=== PATIENT | female | born 1990 | race Caucasian/White ===

== ENCOUNTER 2016-10-10 00:41 | Emergency (ER) | payer SELFPAY ==
[~2016-10-10] VITALS: Ht 162.6 cm; Wt 50.0 kg
[2016-10-10 00:43] VITALS: BP 129/67; PULSE 92; RESP 16; TEMP 98.9; O2SAT 97
[2016-10-10 02:08] VITALS: BP 93/54; PULSE 77; RESP 18; O2SAT 98
[2016-10-10] MEDS ORDERED: KETOROLAC TROMETHAMINE 30 MG/ML (IVP) VIAL IV PUSH ONE (02:30)
[2016-10-10] MEDS ORDERED: SODIUM CHLORIDE 0.9% FLUSH 10 ML FLUSH IVF PRN (02:30)
--- NOTE | 2016-10-10 02:34 | PD ---
HPI Chief Complaint: Respiratory Symptoms Time Seen by Provider: 02:17 Travel History International Travel<30 days: No Contact w/Intl Traveler<30days: No Traveled to known affect area: No History of Present Illness HPI This is a 26-year-old female who has a history of congenital transposition of the great vessels, who presents today with complaint of pleuritic chest pain 3 days. Patient denies any fevers, chills. She does report cough with no productive phlegm. She denies any chest pressure. She says it's sharp and hurts when she takes a deep breath. The patient also has a history of anxiety disorder. She states that this is been making her feel much more anxious than normal. She denies any control use. She states that she has not been sexually active for 3 years. She denies any history of previous blood clots. She stop smoking 1-1/2 months ago. There is no long car rides or plane rides. She has no history of previous trauma to her lower extremities. [facility] Past Medical History ADD: Yes Bipolar Disorder: Yes Cardiovascular Problems: Yes (BACKWARDS HEART AT ) Tetanus Vaccination: Unknown Influenza Vaccination: Yes ?: Not LMP: 08/08/16 : 1 Miscarriage: 1 Past Surgical History Cardiac Surgery: Yes (OPEN HEART AT 10 DAYS) Social History Alcohol Use: No Tobacco Use: Yes (VAPORIZER) Substance Use: No Allergies-Medications (Allergen,Severity, Reaction): Coded Allergies: No Known Allergies (Unverified , 10/10/16) Reported Meds & Prescriptions Reported Meds & Active Scripts Active Zofran (Ondansetron HCl) 4 Mg Tab 4 Mg PO Q8HR PRN Vistaril (Hydroxyzine Pamoate) 25 Mg Cap 25 Mg PO TID PRN Review of Systems Except as stated in HPI: all other systems reviewed are Neg General / Constitutional: No: Fever, Chills HENT: No: Headaches, Lightheadedness Cardiovascular: Positive: Chest Pain or Discomfort, No: Palpitations, Irregular Rhythm Respiratory: Positive: Cough (nonproductive), No: Shortness of Breath Gastrointestinal: No: Nausea, Vomiting, Abdominal Pain Genitourinary: No: Dysuria, Incontinence Musculoskeletal: No: Weakness, Pain Neurologic: No: Weakness, Headache Psychiatric: Positive: Anxiety, No: Depression Physical Exam Narrative GENERAL: Well-developed well-nourished female in no acute respiratory distress. The patient does report feeling anxious. SKIN: Focused skin assessment warm/dry. HEAD: Atraumatic. Normocephalic. EYES: No scleral icterus. No injection or drainage. ENT: No nasal bleeding or discharge. Mucous membranes pink and moist. NECK: Trachea midline. No JVD. Supple. CARDIOVASCULAR: Regular rate and rhythm. No murmur appreciated. RESPIRATORY: No accessory muscle use. Clear to auscultation. Breath sounds equal bilaterally. GASTROINTESTINAL: Abdomen soft, non-tender, nondistended. MUSCULOSKELETAL: No obvious deformities. No clubbing. No cyanosis. No edema. NEUROLOGICAL: Awake and alert. No obvious cranial nerve deficits. Motor grossly within normal limits. Normal speech. PSYCHIATRIC: Appropriate mood and affect; insight and judgment normal. Patient does appear slightly anxious. Data Data Last Documented VS Vital Signs Date Time Temp Pulse Resp B/P Pulse Ox O2 Delivery O2 Flow Rate FiO2 10/10/16 04:07 63 17 97/53 98 Room Air 10/10/16 00:43 98.9 Orders Complete Blood Count With Diff (10/10/16 02:17) Comprehensive Metabolic Panel (10/10/16 02:17) D-Dimer (10/10/16 02:17) Ckmb (Isoenzyme) Profile (10/10/16 02:17) Troponin I (10/10/16 02:17) Iv Access Insert/Monitor (10/10/16 02:17) Ecg Monitoring (10/10/16 02:17) Oximetry (10/10/16 02:17) Oxygen Administration (10/10/16 02:17) Chest, Single Ap (10/10/16 02:17) Sodium Chloride 0.9% Flush (Ns Flush) (10/10/16 02:30) Ketorolac Inj (Toradol Inj) (10/10/16 02:30) CKMB (10/10/16 02:30) CKMB% (10/10/16 02:30) Ondansetron Inj (Zofran Inj) (10/10/16 04:00) Lorazepam Inj (Ativan Inj) (10/10/16 04:00) Labs Laboratory Tests Test 10/10/16 02:30 White Blood Count 6.4 TH/MM3 Red Blood Count 4.32 MIL/MM3 Hemoglobin 11.8 GM/DL Hematocrit 34.4 % Mean Corpuscular Volume 79.7 FL Mean Corpuscular Hemoglobin 27.3 PG Mean Corpuscular Hemoglobin 34.3 % Concent Red Cell Distribution Width 14.8 % Platelet Count 171 TH/MM3 Mean Platelet Volume 8.7 FL Neutrophils (%) (Auto) 60.3 % Lymphocytes (%) (Auto) 28.2 % Monocytes (%) (Auto) 8.2 % Eosinophils (%) (Auto) 2.7 % Basophils (%) (Auto) 0.6 % Neutrophils # (Auto) 3.9 TH/MM3 Lymphocytes # (Auto) 1.8 TH/MM3 Monocytes # (Auto) 0.5 TH/MM3 Eosinophils # (Auto) 0.2 TH/MM3 Basophils # (Auto) 0.0 TH/MM3 CBC Comment DIFF FINAL Differential Comment D-Dimer Quantitative (PE/DVT) 0.40 MG/L FEU Sodium Level 139 MEQ/L Potassium Level 3.6 MEQ/L Chloride Level 101 MEQ/L Carbon Dioxide Level 30.3 MEQ/L Anion Gap 8 MEQ/L Blood Urea Nitrogen 13 MG/DL Creatinine 0.81 MG/DL Estimat Glomerular Filtration 85 ML/MIN Rate Random Glucose 103 MG/DL Calcium Level 8.6 MG/DL Total Bilirubin 0.3 MG/DL Aspartate Amino Transf 28 U/L (AST/SGOT) Alanine Aminotransferase 23 U/L (ALT/SGPT) Alkaline Phosphatase 76 U/L Total Creatine Kinase 173 U/L Creatine Kinase MB 2.2 NG/ML Troponin I LESS THAN 0.02 NG/ML Total Protein 6.7 GM/DL Albumin 3.6 GM/DL [facility] Medical Decision Making Medical Screen Exam Complete: Yes Emergency Medical Condition: Yes Differential Diagnosis ACS versus pulmonary embolus versus pleurisy Narrative Course 26-year-old female presents today with pleuritic chest pain. The patient also has a history of anxiety and feels anxious. This EKG and cardiac enzymes are within normal limits. D-dimer is negative. Chest x-ray shows no acute findings. The patient went to the restroom and and vomited. She states she feels anxious. She is given Ativan 1 mg I V times one dose. She is also given Zofran 4 mg. I discussed the findings on the laboratory tests EKG and x-ray. I informed her that this could possibly be pleurisy. She'll be instructed to take anti-inflammatories. She has been given a prescription for Vistaril and Zofran. She is encouraged to follow up with her therapist for anxiety. Diagnosis Primary Impression: Atypical chest pain Additional Impression: Anxiety Scripts Ondansetron (Zofran)4 Mg Tab4 Mg PO Q8HR PRN (NAUSEA OR VOMITING) #20 TAB Ref 0 Prov:Parag Chavez MD 10/10/16 Hydroxyzine Pamoate (Vistaril)25 Mg Cap25 Mg PO TID PRN (ANXIETY) #20 CAP Ref 0 Prov:Parag Chavez MD 10/10/16 Parag Chavez MD October 10, 2016 02:34
--- NOTE | 2016-10-10 02:57 | RADRPT ---
EXAM DATE/TIME: 10/10/2016 02:40 [place] COMPARISON: No previous studies available for comparison. INDICATIONS : Sternal chest pain. MEDICAL HISTORY : None. 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 ENCOUNTER: Initial ACUITY: 1 day PAIN SCORE: 8/10 LOCATION: chest FINDINGS: A single view of the chest demonstrates the lungs to be symmetrically aerated without evidence of mas s, infiltrate or effusion. The cardiomediastinal contours are unremarkable. There is evidence of pre vious thoracic surgery. Osseous structures are intact. CONCLUSION: Normal examination for a patient of this age. Jacinto Patino MD on October 10, 2016 at 2:56 Board Certified Radiologist. This report was verified electronically.
[2016-10-10 03:01] LABS: AUTOMATED NEUTROPHIL # 3.9 TH/MM3 (1.8-7.7); BASOPHIL % 0.6 % (0.0-2.0); EOSINOPHIL # 0.2 TH/MM3 (0-0.4); EOSINOPHIL % 2.7 % (0.0-4.0); HEMATOCRIT 34.4 % (35.0-46.0); HEMO FLAGS DIFF FINAL; LYMPH % 28.2 % (9.0-44.0); LYMPHOCYTE # 1.8 TH/MM3 (1.0-4.8); MEAN CELL VOLUME 79.7 FL (80.0-100.0); MEAN CORPUSCULAR HEMOGLOBIN 27.3 PG (27.0-34.0); MEAN CORPUSCULAR HGB CONC 34.3 % (32.0-36.0); MONO % 8.2 % (0.0-8.0); NEUT % 60.3 % (16.0-70.0); PLATELET COUNT 171 TH/MM3 (150-450); RED BLOOD COUNT 4.32 MIL/MM3 (4.00-5.30); RED CELL DISTRIBUTION WIDTH 14.8 % (11.6-17.2); WHITE BLOOD COUNT 6.4 TH/MM3 (4.0-11.0)
[2016-10-10 03:27] LABS: ALT (GPT) 23 U/L (10-53); ANION GAP 8 MEQ/L (5-15); AST (GOT) 28 U/L (15-37); BICARBONATE 30.3 MEQ/L (21.0-32.0); BLOOD UREA NITROGEN 13 MG/DL (7-18); CHLORIDE 101 MEQ/L (98-107); GLOMERULAR FILTRATION RATE 85 ML/MIN (>89); POTASSIUM 3.6 MEQ/L (3.5-5.1); SODIUM (NA) 139 MEQ/L (136-145)
[2016-10-10 03:31] LABS: ALKALINE PHOSPHATASE 76 U/L (45-117); CREATINE KINASE 173 U/L (26-192); TOTAL BILIRUBIN ADULT 0.3 MG/DL (0.2-1.0)
[2016-10-10 03:43] LABS: CKMB 2.2 NG/ML (0.5-3.6)
[2016-10-10] MEDS ORDERED: LORazepam 2 MG/ML VIAL IV PUSH ONE (04:00)
[2016-10-10] MEDS ORDERED: ONDANSETRON HCL 4 MG/2 ML VIAL IV PUSH ONE (04:00)
[2016-10-10 04:07] VITALS: BP 97/53; PULSE 63; RESP 17; O2SAT 98
[2016-10-10] MEDS ORDERED: VIST25CA PO (04:12)
[2016-10-10] MEDS ORDERED: ZOFR4TAB PO (04:12)
[2016-10-10 06:51] VITALS: BP 97/55; PULSE 74; RESP 14; O2SAT 97
[2016-10-10 08:00] VITALS: BP 99/57; PULSE 77; RESP 16; O2SAT 99
--- NOTE | 2016-10-10 08:17 | EKG ---
Date Performed: 10/10/2016 Time Performed: 02:27:19 PTAGE: 26 years EKG: Sinus rhythm WITH SINUS ARRHYTHMIA NONSPECIFIC T-WAVE ABNORMALITY BORDERLINE ECG NO PREVIOUS TRACING DOCTOR: Ronald Pride Interpretating Date/Time 10/10/2016 08:15:15
[2016-10-10 09:56] VITALS: BP 101/60
== END 2016-10-10 09:57 | disposition home or self-care (01) ==
LOC: NEPE 00:41
DX: R07.89 Other chest pain (principal); F41.9 Anxiety disorder, unspecified; F31.9 Bipolar disorder, unspecified
CPT/HCPCS: 71010; 80053; 82550; 82552; 84484; 85025; 85379; 93005; 96374; 96375; 99284; J1885; J2060; J2405

== ENCOUNTER 2017-06-07 19:34 | Emergency (ER) | payer SELFPAY ==
[~2017-06-07] VITALS: Ht 162.6 cm; Wt 50.0 kg
[~2017-06-07 19:34] MED LIST: VIST25CA PO; ZOFR4TAB PO
[2017-06-07 19:36] VITALS: BP 117/60; PULSE 90; RESP 16; TEMP 99.5; O2SAT 98
--- NOTE | 2017-06-07 19:55 | PD ---
HPI Chief Complaint: Cold / Flu Symptoms Time Seen by Provider: 19:47 Travel History International Travel<30 days: No Contact w/Intl Traveler<30days: No Traveled to known affect area: No History of Present Illness HPI 26-year-old female presents emergency department for evaluation of sore throat, fever, near pain worsening over last 2 days. Patient states that it has become very difficult to swallow due to the pain. She has taken an ibuprofen yesterday but nothing today. She has also taken TheraFlu with no relief of her symptoms. She denies abdominal pain, nausea, vomiting. Mild cough and chest congestion that started today. She has no other symptoms to report. [facility] Past Medical History ADD: Yes Bipolar Disorder: Yes Cardiovascular Problems: Yes (BACKWARDS HEART AT ) Diminished Hearing: No ?: Not LMP: currently : 1 Miscarriage: 1 Past Surgical History Cardiac Surgery: Yes (OPEN HEART AT 10 DAYS) Social History Alcohol Use: No Tobacco Use: Yes (VAPORIZER) Substance Use: No Allergies-Medications (Allergen,Severity, Reaction): Coded Allergies: No Known Allergies (Unverified Adverse Reaction, Unknown, 06/07/17) Reported Meds & Prescriptions Reported Meds & Active Scripts Active No Active Prescriptions or Reported Medications Review of Systems Except as stated in HPI: all other systems reviewed are Neg Physical Exam Narrative GENERAL: Well-nourished, well-developed female patient in no acute distress SKIN: Focused skin assessment warm/dry. HEAD: Normocephalic. Atraumatic EARS: Bilateral pinnae and external canals appear within normal limits. Bilateral tympanic membranes without erythema, dullness or perforation. EYES: No scleral icterus. No injection or drainage. ENT: Mucosa pink and moist. Pharynx with erythema without exudate. No uvular edema. No uvular, palatal, or tonsillar deviation. Airway patent. Nasal turbinates appear normal without nasal blood, purulent drainage or septal hematoma. NECK: Supple, trachea midline. Mild anterior cervical lymphadenopathy. CARDIOVASCULAR: Regular rate and rhythm without murmurs, gallops, or rubs. RESPIRATORY: Breath sounds equal bilaterally. No accessory muscle use. GASTROINTESTINAL: Abdomen soft, non-tender, nondistended. MUSCULOSKELETAL: No cyanosis, or edema. BACK: Nontender without obvious deformity. No CVA tenderness. Data Data Last Documented VS Vital Signs Date Time Temp Pulse Resp B/P (MAP) Pulse Ox O2 Delivery O2 Flow Rate FiO2 06/07/17 20:54 06/07/17 19:36 99.5 90 16 98 Nasal Cannula Orders Orders Influenzae A/B Antigen (06/07/17 19:54) Group A Rapid Strep Screen (06/07/17 19:54) Dexamethasone Inj (Decadron Inj) (06/07/17 20:00) Strep Culture (Group A) (06/07/17 20:10) Ed Discharge Order (06/07/17 20:52) MDM Medical Decision Making Medical Screen Exam Complete: Yes Emergency Medical Condition: Yes Medical Record Reviewed: Yes Differential Diagnosis Pharyngitis strep versus viral versus tonsillitis versus, goal versus allergies versus influenza Narrative Course 26-year-old female presents to emergency department for evaluation. Patient appears without distress. Oropharynx is erythematous. Rapid strep screen is negative. Influenza is negative as well. Patient is given Decadron IM. She is counseled on care and encouraged to follow-up with primary care provider. She agrees to return immediately with any acute worsening symptoms. Diagnosis Primary Impression: Pharyngitis Qualified Codes: J02.9 - Acute pharyngitis, unspecified Additional Impression: URI (upper respiratory infection) Qualified Codes: J06.9 - Acute upper respiratory infection, unspecified Referrals: Primary Care Physician Patient Instructions: General Instructions, Pharyngitis (ED) Additional Instructions: Warm salt water gargles may help to alleviate symptoms Follow-up with primary care provider Tylenol or ibuprofen as directed on package as needed for fever and/or pain Avoid abrasive and acidic foods Return immediately to the emergency department with any acute worsening symptoms Med/Other Pt SpecificInfo: No Change to Meds Scripts No Active Prescriptions or Reported Meds Disposition: 01 DISCHARGE HOME Condition: Stable Aniyah Hassan Jun 07, 2017 19:55
[2017-06-07] MEDS ORDERED: DEXAMETHASONE SOD PHOS 4 MG/ML VIAL IM ONE (20:00)
== END 2017-06-07 21:08 | disposition home or self-care (01) ==
LOC: NEPD 19:34
DX: J06.9 Acute upper respiratory infection, unspecified (principal); F98.8 Other specified behavioral and emotional disorders with onset usually occurring in childhood and adolescence; F31.9 Bipolar disorder, unspecified; Z72.0 Tobacco use
CPT/HCPCS: 87081; 87804; 87880; 96372; 99284; J1100

== ENCOUNTER 2017-08-09 18:00 | Emergency (ER) | payer BC ==
[~2017-08-09] VITALS: Ht 162.6 cm; Wt 49.5 kg
[2017-08-09 18:07] VITALS: BP 97/52; PULSE 108; RESP 18; TEMP 99.1; O2SAT 98
[2017-08-09] MEDS ORDERED: SODIUM CHLOR 0.9% 1000 ML INJ 1,000 ML IV SCH (18:25)
--- NOTE | 2017-08-09 18:28 | PD ---
HPI Chief Complaint: Cold / Flu Symptoms Time Seen by Provider: 18:20 Travel History International Travel<30 days: No Contact w/Intl Traveler<30days: No Traveled to known affect area: No History of Present Illness HPI 27-year-old female here for evaluation of nausea, vomiting, diarrhea, nasal congestion. Patient believes she may have the flu. Emesis and bowel movements are nonbloody. She has occasional abdominal cramping. No sore throat. No cough. States that she has been unable to keep any fluids down and feels dehydrated. Denies urinary symptoms. PFSH Past Medical History ADD: Yes Bipolar Disorder: Yes Cardiovascular Problems: Yes (CONGENITAL) Diminished Hearing: No ?: Not LMP: LAST WEEK : 1 Miscarriage: 1 Past Surgical History Cardiac Surgery: Yes (OPEN HEART AT 10 DAYS) Social History Alcohol Use: No Tobacco Use: Yes (VAPORIZER) Substance Use: No (HX OF IV DRUGS) Allergies-Medications (Allergen,Severity, Reaction): Coded Allergies: No Known Allergies (Unverified Adverse Reaction, Unknown, 08/09/17) Reported Meds & Prescriptions Reported Meds & Active Scripts Active No Active Prescriptions or Reported Medications Review of Systems Except as stated in HPI: all other systems reviewed are Neg Physical Exam Narrative GENERAL: Well-developed, well-nourished, no apparent distress. SKIN: Focused skin assessment warm/dry. No rash. HEAD: Atraumatic. Normocephalic. EYES: Pupils equal and round. No scleral icterus. No injection or drainage. ENT: No nasal bleeding or discharge. Mucous membranes pink and dry. Normal pharynx. Bilateral tympanic membranes and external auditory canals are normal. NECK: Trachea midline. No JVD. No nuchal rigidity. CARDIOVASCULAR: Slightly tachycardic, rate 105. RESPIRATORY: No accessory muscle use. Clear to auscultation. Breath sounds equal bilaterally. GASTROINTESTINAL: Abdomen soft, non-tender, nondistended. MUSCULOSKELETAL: No obvious deformities. No clubbing. No cyanosis. No edema. NEUROLOGICAL: Awake and alert. No obvious cranial nerve deficits. Motor grossly within normal limits. Normal speech. PSYCHIATRIC: Appropriate mood and affect; insight and judgment normal. Data Data Last Documented VS Vital Signs Date Time Temp Pulse Resp B/P (MAP) Pulse Ox O2 Delivery O2 Flow Rate FiO2 08/09/17 19:49 98.7 65 16 91/49 (63) 99 Room Air Orders Orders Beta Hcg (Quant/Titer) (08/09/17 18:) Complete Blood Count With Diff (08/09/17:) Comprehensive Metabolic Panel (08/09/17) Lipase (08/09/17:) Prothrombin Time / Inr (Pt) (08/09/17:) Act Partial Throm Time (Ptt) (08/09/17:) Urinalysis - C+S If Indicated (08/09/17) Iv Access Insert/Monitor (08/09/17) Ecg Monitoring (08/09/17) Oximetry (08/09/17:) Ondansetron Inj (Zofran Inj) (08/09/17:) Sodium Chlor 0.9% 1000 Ml Inj (Ns 1000 M (08/09/17 18:25) Sodium Chloride 0.9% Flush (Ns Flush) (08/09/17:) Influenzae A/B Antigen (08/09/17:) Acetaminophen (Tylenol) (08/09/17 18:) Hepatitis Profile (08/09/17 19:08) Sodium Chlor 0.9% 1000 Ml Inj (Ns 1000 M (08/09/17 19:15) Labs Laboratory Tests Test 08/09/17 18:40 08/09/17 19:30 08/09/17 19:35 White Blood Count 6.2 TH/MM3 Red Blood Count 5.29 MIL/MM3 Hemoglobin 15.4 GM/DL Hematocrit 45.1 % Mean Corpuscular Volume 85.3 FL Mean Corpuscular Hemoglobin 29.1 PG Mean Corpuscular Hemoglobin Concent 34.1 % Red Cell Distribution Width 12.1 % Platelet Count 166 TH/MM3 Mean Platelet Volume 8.5 FL Neutrophils (%) (Auto) 83.4 % Lymphocytes (%) (Auto) 13.3 % Monocytes (%) (Auto) 3.1 % Eosinophils (%) (Auto) 0.1 % Basophils (%) (Auto) 0.1 % Neutrophils # (Auto) 5.2 TH/MM3 Lymphocytes # (Auto) 0.8 TH/MM3 Monocytes # (Auto) 0.2 TH/MM3 Eosinophils # (Auto) 0.0 TH/MM3 Basophils # (Auto) 0.0 TH/MM3 CBC Comment DIFF FINAL Differential Comment Prothrombin Time 12.1 SEC Prothromb Time International Ratio 1.2 RATIO Activated Partial Thromboplast Time 31.7 SEC Blood Urea Nitrogen 17 MG/DL Creatinine 0.85 MG/DL Random Glucose 92 MG/DL Total Protein 7.6 GM/DL Albumin 3.9 GM/DL Calcium Level 8.2 MG/DL Alkaline Phosphatase 57 U/L Aspartate Amino Transf (AST/SGOT) 38 U/L Alanine Aminotransferase (ALT/SGPT) 94 U/L Total Bilirubin 0.7 MG/DL Sodium Level 134 MEQ/L Potassium Level 3.4 MEQ/L Chloride Level 100 MEQ/L Carbon Dioxide Level 26.0 MEQ/L Anion Gap 8 MEQ/L Estimat Glomerular Filtration Rate 80 ML/MIN Lipase 86 U/L Human Chorionic Gonadotropin, Quant LESS THAN 1 MIU/ML Urine Collection Type CLEAN CATCH Urine Color YELLOW Urine Turbidity CLEAR Urine pH 6.0 Urine Specific Rena Lara 1.020 Urine Protein TRACE mg/dL Urine Glucose (UA) NEG mg/dL Urine Ketones NEG mg/dL Urine Occult Blood NEG Urine Nitrite NEG Urine Bilirubin NEG Urine Urobilinogen 0.2 MG/DL Urine Leukocyte Esterase NEG Urine Squamous Epithelial Cells 0-5 /hpf Urine Bacteria OCC /hpf Urine Mucus MOD /lpf Microscopic Urinalysis Comment CULT NOT INDICATED MDM Medical Decision Making Medical Screen Exam Complete: Yes Emergency Medical Condition: Yes Differential Diagnosis Gastroenteritis, dehydration/metabolic abnormality, influenza, appendicitis less likely Narrative Course Initial vital signs show heart rate 108, blood pressure 97/52, pulse ox 90% on room air, oral temperature 99.1F. CBC: WBC 6.2, hemoglobin 15.4, hematocrit 45.1, platelets 166, neutrophils 83.4% . CMP is remarkable for AST 30, ALT 94. Lipase is 86. Beta hCG is negative. Patient was made aware of all findings. She was given a liter of normal saline IV and IV Zofran and feels improved. 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 She was made aware of slight transaminitis and the possibility of having hepatitis especially hepatitis C given her history of IV drug abuse. I will order a hepatitis panel, however I advised the patient that these results do not come back today and it will be up to her to follow-up with them by contacting medical records in a few days. Patient was given 2 L of normal saline IV and IV Zofran and on reassessment she feels significantly improved. She is tolerating clear liquids and soup in the emergency department. She likely has a gastroenteritis. She is stable for discharge home with further outpatient follow-up with a primary care physician this week. She was advised on when to return to the emergency department. She verbalizes understanding and agreement with plan. Diagnosis Primary Impression: Gastroenteritis Additional Impression: Transaminitis Referrals: Isabel Spear MD [address] [facility] 3 days Primary Care Physician 3 days Additional Instructions: Follow-up with a primary care physician this week. Return to the emergency department for worsening symptoms or any other concerns. Scripts No Active Prescriptions or Reported Meds Disposition: 01 DISCHARGE HOME Condition: Stable Aleksander Nichols MD Aug 09, 2017 18:28
[2017-08-09] MEDS ORDERED: ACETAMINOPHEN 325 MG TAB PO ONE (18:30)
[2017-08-09] MEDS ORDERED: ONDANSETRON HCL 4 MG/2 ML VIAL IVP ONE (18:30)
[2017-08-09] MEDS ORDERED: SODIUM CHLORIDE 0.9% FLUSH 10 ML FLUSH IV FLUSH PRN (18:30)
[2017-08-09 18:42] VITALS: O2SAT 96
[2017-08-09 18:46] LABS: AUTOMATED NEUTROPHIL # 5.2 TH/MM3 (1.8-7.7); BASOPHIL % 0.1 % (0.0-2.0); EOSINOPHIL % 0.1 % (0.0-4.0); HEMATOCRIT 45.1 % (35.0-46.0); HEMOGLOBIN 15.4 GM/DL (11.6-15.3); LYMPH % 13.3 % (9.0-44.0); LYMPHOCYTE # 0.8 TH/MM3 (1.0-4.8); MEAN CELL VOLUME 85.3 FL (80.0-100.0); MEAN CORPUSCULAR HEMOGLOBIN 29.1 PG (27.0-34.0); MEAN CORPUSCULAR HGB CONC 34.1 % (32.0-36.0); MEAN PLATELET VOLUME 8.5 FL (7.0-11.0); MONO % 3.1 % (0.0-8.0); MONOCYTE # 0.2 TH/MM3 (0-0.9); NEUT % 83.4 % (16.0-70.0); PLATELET COUNT 166 TH/MM3 (150-450); RED BLOOD COUNT 5.29 MIL/MM3 (4.00-5.30); RED CELL DISTRIBUTION WIDTH 12.1 % (11.6-17.2); WHITE BLOOD COUNT 6.2 TH/MM3 (4.0-11.0)
[2017-08-09 18:55] LABS: CHLORIDE 100 MEQ/L (98-107); SODIUM (NA) 134 MEQ/L (136-145)
[2017-08-09 18:58] LABS: CALCIUM 8.2 MG/DL (8.5-10.1)
[2017-08-09 18:59] LABS: ALBUMIN 3.9 GM/DL (3.4-5.0); BLOOD UREA NITROGEN 17 MG/DL (7-18); GLUCOSE,RANDOM 92 MG/DL (74-106)
[2017-08-09 19:02] LABS: ALT (GPT) 94 U/L (10-53); AST (GOT) 38 U/L (15-37); CREATININE 0.85 MG/DL (0.50-1.00); GLOMERULAR FILTRATION RATE 80 ML/MIN (>89)
[2017-08-09 19:03] LABS: TOTAL BILIRUBIN ADULT 0.7 MG/DL (0.2-1.0); TOTAL PROTEIN 7.6 GM/DL (6.4-8.2)
[2017-08-09 19:04] LABS: ALKALINE PHOSPHATASE 57 U/L (45-117)
[2017-08-09 19:05] LABS: INTERNATIONAL NORMALIZED RATIO 1.2 RATIO; PROTHROMBIN TIME - PATIENT 12.1 SEC (9.8-11.6)
[2017-08-09] MEDS ORDERED: SODIUM CHLOR 0.9% 1000 ML INJ 1,000 ML IV ONE (19:15)
[2017-08-09 19:40] LABS: BILIRUBIN, URINE NEG (NEG); BLOOD, URINE NEG (NEG); GLUCOSE,URINE NEG (NEG); KETONE, URINE NEG (NEG); NITRITE,URINE NEG (NEG); URINE COLOR YELLOW (YELLW/STRAW); URINE LEUKOCYTE ESTERASE NEG (NEG)
[2017-08-09 19:49] VITALS: BP 91/49; PULSE 65; RESP 16; TEMP 98.7; O2SAT 99
[2017-08-09 19:56] LABS: SQUAMOUS EPITHELIAL CELL URINE 0-5 /hpf (0-5)
[2017-08-09 19:57] LABS: MUCUS URINE MOD /lpf (OCC)
[2017-08-09 19:58] LABS: BACTERIA, URINE OCC /hpf
[2017-08-10 13:23] LABS: HEPATITIS A AB IGM NEGATIVE (NEGATIVE); HEPATITIS B CORE AB IGM NEGATIVE (NEGATIVE)
== END 2017-08-09 20:44 | disposition home or self-care (01) ==
LOC: PHED 18:00
DX: K52.9 Noninfective gastroenteritis and colitis, unspecified (principal); R74.0 Nonspecific elevation of levels of transaminase and lactic acid dehydrogenase [LDH]; R09.81 Nasal congestion; Z72.0 Tobacco use
CPT/HCPCS: 80053; 80074; 81001; 83690; 84702; 85025; 85610; 85730; 87804; 96361; 96374; 99284; J2405; J7030

== ENCOUNTER 2017-09-28 21:11 | Emergency (ER) | payer BC ==
[~2017-09-28] VITALS: Ht 162.6 cm; Wt 50.0 kg
[2017-09-28 21:15] VITALS: BP 114/53; PULSE 106; RESP 18; TEMP 97.9; O2SAT 96
[2017-09-28 22:25] LABS: AMORPHOUS SEDIMENT, URINE RARE; BACTERIA, URINE RARE /hpf; BILIRUBIN, URINE NEG (NEG); BLOOD, URINE LARGE (NEG); GLUCOSE,URINE NEG (NEG); KETONE, URINE NEG (NEG); MUCUS URINE FEW /lpf (OCC); NITRITE,URINE NEG (NEG); SQUAMOUS EPITHELIAL CELL URINE 3 /hpf (0-5); URINE COLOR LIGHT-YELLOW (YELLW/STRAW); URINE LEUKOCYTE ESTERASE NEG (NEG)
[2017-09-28] MEDS ORDERED: MORPHINE SULFATE 4 MG/ML INJ IV PUSH ONE (22:45)
--- NOTE | 2017-09-28 22:47 | PD ---
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 Patient reports that she started her menstrual period about 2 days ago and has had constant pain since then. She reports that she usually has discomfort with her menstrual periods, however this pain is worse than it usually is. Pain is lower, constant, cramping, moderate to severe, radiates to her back. No abnormal vaginal discharge other than bleeding. She is sexually active with one partner and believe she is in a monogamous relationship. No history of abdominal surgeries. No nausea or vomiting. No fevers or chills. No urinary symptoms. She has taken a total of 10 ibuprofen pills throughout the day today without any relief of symptoms. PFS Past Medical History ADD: Yes Bipolar Disorder: Yes Cardiovascular Problems: Yes (CONGENITAL) Diminished Hearing: No Hepatitis: Yes (hep c) ?: Not LMP: on now : 1 Miscarriage: 1 Past Surgical History Cardiac Surgery: Yes (OPEN HEART AT 10 DAYS) Social History Alcohol Use: No Tobacco Use: Yes (VAPORIZER) Substance Use: No (HX OF IV DRUGS) Allergies-Medications (Allergen,Severity, Reaction): Coded Allergies: No Known Allergies (Verified Adverse Reaction, Unknown, 09/28/17) Reported Meds & Prescriptions Reported Meds & Active Scripts Active No Active Prescriptions or Reported Medications Review of Systems Except as stated in HPI: all other systems reviewed are Neg Physical Exam Narrative GENERAL: Well-developed, well-nourished, comfortable, no apparent distress. SKIN: Focused skin assessment warm/dry. HEAD: Atraumatic. Normocephalic. EYES: Pupils equal and round. No scleral icterus. No injection or drainage. ENT: Mucous membranes pink and moist. NECK: Trachea midline. No JVD. CARDIOVASCULAR: Regular rate and rhythm. RESPIRATORY: No accessory muscle use. Clear to auscultation. Breath sounds equal bilaterally. GASTROINTESTINAL: Abdomen soft, nondistended. Moderate suprapubic tenderness without peritoneal signs. Mild diffuse tenderness. No hernias. Normal bowel sounds. 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 Normal external genitalia. Moderate amount of blood in the vaginal vault coming from the cervix. Cervical osseous closed. No intravaginal lacerations. No CMT. No adnexal masses or tenderness. MUSCULOSKELETAL: No obvious deformities. No clubbing. No cyanosis. No edema. NEUROLOGICAL: Awake and alert. No obvious cranial nerve deficits. Motor grossly within normal limits. Normal speech. PSYCHIATRIC: Appropriate mood and affect; insight and judgment normal. Data Data Last Documented VS Vital Signs Date Time Temp Pulse Resp B/P (MAP) Pulse Ox O2 Delivery O2 Flow Rate FiO2 09/28/17 21:15 97.9 106 18 114/53 (73) 96 Orders Orders Complete Blood Count With Diff (09/28/17 21:17) Comprehensive Metabolic Panel (09/28/17 21:17) Lipase (09/28/17 21:17) Urinalysis - C+S If Indicated (09/28/17 21:17) Ed Urine Pregnancytest Poc (09/28/17 21:17) Ct Abd/Pel W Iv Contrast(Rout) (09/28/17 22:32) Gc And Chlamydia Pcr (09/28/17 22:32) Wet Prep Profile (09/28/17 22:32) Morphine Inj (Morphine Inj) (09/28/17 22:45) Diatrizoate Liq ( Gastroview Liq) (09/28/17 23:45) Oral Contrast - Adult (09/29/17 00:12) Iohexol 350 Inj (Omnipaque 350 Inj) (09/29/17 01:31) Ketorolac Inj (Toradol Inj) (09/29/17 02:00) Labs Laboratory Tests Test 09/28/17 21:32 09/28/17 23:30 09/29/17 00:05 Urine Color LIGHT-YELLOW Urine Turbidity CLEAR Urine pH 6.0 Urine Specific [place] 1.025 Urine Protein NEG mg/dL Urine Glucose (UA) NEG mg/dL Urine Ketones NEG mg/dL Urine Occult Blood LARGE Urine Nitrite NEG Urine Bilirubin NEG Urine Urobilinogen 2.0 MG/DL Urine Leukocyte Esterase NEG Urine RBC /hpf Urine WBC 6 /hpf Urine Squamous Epithelial Cells 3 /hpf Urine Amorphous Sediment RARE Urine Bacteria RARE /hpf Urine Mucus FEW /lpf Microscopic Urinalysis Comment CULT NOT INDICATED White Blood Count 4.9 TH/MM3 Red Blood Count 4.62 MIL/MM3 Hemoglobin 13.8 GM/DL Hematocrit 39.1 % Mean Corpuscular Volume 84.6 FL Mean Corpuscular Hemoglobin 29.9 PG Mean Corpuscular Hemoglobin Concent 35.3 % Red Cell Distribution Width 13.2 % Platelet Count 153 TH/MM3 Mean Platelet Volume 8.9 FL Neutrophils (%) (Auto) 54.3 % Lymphocytes (%) (Auto) 34.9 % Monocytes (%) (Auto) 7.6 % Eosinophils (%) (Auto) 2.4 % Basophils (%) (Auto) 0.8 % Neutrophils # (Auto) 2.7 TH/MM3 Lymphocytes # (Auto) 1.7 TH/MM3 Monocytes # (Auto) 0.4 TH/MM3 Eosinophils # (Auto) 0.1 TH/MM3 Basophils # (Auto) 0.0 TH/MM3 CBC Comment DIFF FINAL Differential Comment Blood Urea Nitrogen 17 MG/DL Creatinine 0.73 MG/DL Random Glucose 109 MG/DL Total Protein 7.2 GM/DL Albumin 3.8 GM/DL Calcium Level 8.7 MG/DL Alkaline Phosphatase 64 U/L Aspartate Amino Transf (AST/SGOT) 42 U/L Alanine Aminotransferase (ALT/SGPT) 131 U/L Total Bilirubin 0.3 MG/DL Sodium Level 141 MEQ/L Potassium Level 3.7 MEQ/L Chloride Level 110 MEQ/L Carbon Dioxide Level 24.2 MEQ/L Anion Gap 7 MEQ/L Estimat Glomerular Filtration Rate 96 ML/MIN Lipase 104 U/L Clue Cells (Wet Prep) NONE SEEN Vaginal Trichomonas (Wet Prep) NONE SEEN Vaginal Yeast (Wet Prep) NONE SEEN MDM Medical Decision Making Medical Screen Exam Complete: Yes Emergency Medical Condition: Yes Medical Record Reviewed: Yes Differential Diagnosis Menstrual cramps, PID, ovarian cyst, ovarian torsion less likely, TOA, appendicitis, colitis Narrative Course Vital signs reviewed. CBC: WBC 4.9, hemoglobin 13.8, hematocrit 39.1, platelets 153. CMP is remarkable for AST 42, ALT 131. The patient was recently diagnosed with hepatitis C. UA shows large occult blood, 6 WBCs, innumerable RBCs, rare bacteria. Patient is currently on her menstrual period. Wet prep is negative for yeast, negative for clue cells, negative for trichomonas. Patient was given 4 mg of IV morphine with significant improvement in her pain. At approximately 2:00 AM patient was signed out to LUCIA Bright to follow-up with CT abdomen pelvis and disposition. Scripts No Active Prescriptions or Reported Meds Aleksander Nichols MD Sep 28, 2017 22:47
[2017-09-28 23:42] LABS: AUTOMATED NEUTROPHIL # 2.7 TH/MM3 (1.8-7.7); BASOPHIL % 0.8 % (0.0-2.0); EOSINOPHIL # 0.1 TH/MM3 (0-0.4); EOSINOPHIL % 2.4 % (0.0-4.0); HEMATOCRIT 39.1 % (35.0-46.0); HEMOGLOBIN 13.8 GM/DL (11.6-15.3); LYMPH % 34.9 % (9.0-44.0); LYMPHOCYTE # 1.7 TH/MM3 (1.0-4.8); MEAN CELL VOLUME 84.6 FL (80.0-100.0); MEAN CORPUSCULAR HEMOGLOBIN 29.9 PG (27.0-34.0); MEAN CORPUSCULAR HGB CONC 35.3 % (32.0-36.0); MEAN PLATELET VOLUME 8.9 FL (7.0-11.0); MONO % 7.6 % (0.0-8.0); MONOCYTE # 0.4 TH/MM3 (0-0.9); NEUT % 54.3 % (16.0-70.0); PLATELET COUNT 153 TH/MM3 (150-450); RED BLOOD COUNT 4.62 MIL/MM3 (4.00-5.30); RED CELL DISTRIBUTION WIDTH 13.2 % (11.6-17.2); WHITE BLOOD COUNT 4.9 TH/MM3 (4.0-11.0)
[2017-09-28] MEDS ORDERED: DIATRIZOATE MEGLUM/DIATRIZOATE SOD 9 ML CUP PO ONE (23:45)
[2017-09-29 00:08] LABS: ALBUMIN 3.8 GM/DL (3.4-5.0); AST (GOT) 42 U/L (15-37); BICARBONATE 24.2 MEQ/L (21.0-32.0); BLOOD UREA NITROGEN 17 MG/DL (7-18); CALCIUM 8.7 MG/DL (8.5-10.1); CHLORIDE 110 MEQ/L (98-107); CREATININE 0.73 MG/DL (0.50-1.00); GLOMERULAR FILTRATION RATE 96 ML/MIN (>89); GLUCOSE,RANDOM 109 MG/DL (74-106); SODIUM (NA) 141 MEQ/L (136-145)
[2017-09-29 00:09] LABS: ALT (GPT) 131 U/L (10-53)
[2017-09-29 00:11] LABS: ALKALINE PHOSPHATASE 64 U/L (45-117); TOTAL BILIRUBIN ADULT 0.3 MG/DL (0.2-1.0); TOTAL PROTEIN 7.2 GM/DL (6.4-8.2)
[2017-09-29] MEDS ORDERED: IOHEXOL 350 MG/ML 10 ML VIAL (for RAD DIAG) IVCONTRAST ONE (01:31)
[2017-09-29] MEDS ORDERED: KETOROLAC TROMETHAMINE 30 MG/ML (IVP) VIAL IV PUSH ONE (02:00)
[2017-09-29 02:26] VITALS: RESP 20
--- NOTE | 2017-09-29 03:25 | RADRPT ---
EXAM DATE/TIME: 09/29/2017 01:19 [facility] COMPARISON: No previous studies available for comparison. INDICATIONS : Abdomen pain. IV CONTRAST: 90 cc Omnipaque 350 (iohexol) IV ORAL CONTRAST: Prescribed oral contrast ingested. RADIATION DOSE: 6.64 CTDIvol (mGy) MEDICAL HISTORY : Cardiovascular disease. SURGICAL HISTORY : None. ENCOUNTER: Initial ACUITY: 1 day PAIN SCALE: 5/10 LOCATION: Bilateral abdomen TECHNIQUE: Volumetric scanning of the abdomen and pelvis was performed. Using automated exposure control and ad justment of the mA and/or kV according to patient size, radiation dose was kept as low as reasonably achievable to obtain optimal diagnostic quality images. DICOM format image data is available electro nically for review and comparison. FINDINGS: LOWER LUNGS: The visualized lower lungs are clear. LIVER: Homogeneous density without lesion. There is no dilation of the biliary tree. No calcified gallston es. SPLEEN: Normal size without lesion. PANCREAS: Within normal limits. KIDNEYS: Normal in size and shape. There is no mass, stone or hydronephrosis. ADRENAL GLANDS: Within normal limits. VASCULAR: There is no aortic aneurysm. BOWEL/MESENTERY: The stomach, small bowel, and colon demonstrate no acute abnormality. There is no free intraperitone al air or fluid. Appendix is identified, best seen on coronal reconstructions and is radiographically normal. ABDOMINAL WALL: Within normal limits. RETROPERITONEUM: There is no lymphadenopathy. BLADDER: No wall thickening or mass. REPRODUCTIVE: Small, 1.2 cm probable left ovarian cyst. Endometrial stripe is slightly prominent likely related to phase of menses. INGUINAL: There is no lymphadenopathy or hernia. MUSCULOSKELETAL: Within normal limits for patient age. CONCLUSION: 1. Mild prominence of the endometrial stripe likely related to phase of menses. Small, 1.2 cm probabl e left ovarian cyst. 2. Otherwise negative. No acute intraperitoneal or pelvic process to explain current clinical symptom s. The appendix is identified and is radiographically normal. Driss Pimentel MD on September 29, 2017 at 3:16 Board Certified Radiologist. This report was verified electronically.
[2017-09-29] MEDS ORDERED: DICL75TA PO (03:35)
--- NOTE | 2017-09-29 03:38 | PD ---
Physical Exam Date Seen by Provider: September 29, 2017 Time Seen by Provider: 03:36 Narrative GENERAL: This is a well-nourished, well-developed patient, in no apparent distress. SKIN: No rashes, ecchymoses or lesions. Warm and dry. HEAD: Atraumatic. Normocephalic. EYES: PERRL, EOMI, no discharge or injection. No scleral icterus. EARS: Clear NOSE: Nasal turbinates appear normal. THROAT: Mucosa pink and moist. Airway patent. NECK: Trachea midline. supple, moves head freely. LUNGS: Clear to auscultation. CV: Regular in rhythm. ABDOMEN: Soft nontender. EXT: No clubbing cyanosis or edema. Data Data Last Documented VS Vital Signs Date Time Temp Pulse Resp B/P (MAP) Pulse Ox O2 Delivery O2 Flow Rate FiO2 09/29/17 02:26 20 09/28/17 21:15 97.9 106 114/53 (73) 96 Orders Orders Complete Blood Count With Diff (09/28/17 21:17) Comprehensive Metabolic Panel (09/28/17 21:17) Lipase (09/28/17 21:17) Urinalysis - C+S If Indicated (09/28/17 21:17) Ed Urine Pregnancytest Poc (09/28/17 21:17) Ct Abd/Pel W Iv Contrast(Rout) (09/28/17 22:32) Gc And Chlamydia Pcr (09/28/17 22:32) Wet Prep Profile (09/28/17 22:32) Morphine Inj (Morphine Inj) (09/28/17 22:45) Diatrizoate Liq ( Gastroview Liq) (09/28/17 23:45) Oral Contrast - Adult (09/29/17 00:12) Iohexol 350 Inj (Omnipaque 350 Inj) (09/29/17 01:31) Ketorolac Inj (Toradol Inj) (09/29/17 02:00) Labs Laboratory Tests Test 09/28/17 21:32 09/28/17 23:30 09/29/17 00:05 Urine Color LIGHT-YELLOW Urine Turbidity CLEAR Urine pH 6.0 Urine Specific [place] 1.025 Urine Protein NEG mg/dL Urine Glucose (UA) NEG mg/dL Urine Ketones NEG mg/dL Urine Occult Blood LARGE Urine Nitrite NEG Urine Bilirubin NEG Urine Urobilinogen 2.0 MG/DL Urine Leukocyte Esterase NEG Urine RBC /hpf Urine WBC 6 /hpf Urine Squamous Epithelial Cells 3 /hpf Urine Amorphous Sediment RARE Urine Bacteria RARE /hpf Urine Mucus FEW /lpf Microscopic Urinalysis Comment CULT NOT INDICATED White Blood Count 4.9 TH/MM3 Red Blood Count 4.62 MIL/MM3 Hemoglobin 13.8 GM/DL Hematocrit 39.1 % Mean Corpuscular Volume 84.6 FL Mean Corpuscular Hemoglobin 29.9 PG Mean Corpuscular Hemoglobin Concent 35.3 % Red Cell Distribution Width 13.2 % Platelet Count 153 TH/MM3 Mean Platelet Volume 8.9 FL Neutrophils (%) (Auto) 54.3 % Lymphocytes (%) (Auto) 34.9 % Monocytes (%) (Auto) 7.6 % Eosinophils (%) (Auto) 2.4 % Basophils (%) (Auto) 0.8 % Neutrophils # (Auto) 2.7 TH/MM3 Lymphocytes # (Auto) 1.7 TH/MM3 Monocytes # (Auto) 0.4 TH/MM3 Eosinophils # (Auto) 0.1 TH/MM3 Basophils # (Auto) 0.0 TH/MM3 CBC Comment DIFF FINAL Differential Comment Blood Urea Nitrogen 17 MG/DL Creatinine 0.73 MG/DL Random Glucose 109 MG/DL Total Protein 7.2 GM/DL Albumin 3.8 GM/DL Calcium Level 8.7 MG/DL Alkaline Phosphatase 64 U/L Aspartate Amino Transf (AST/SGOT) 42 U/L Alanine Aminotransferase (ALT/SGPT) 131 U/L Total Bilirubin 0.3 MG/DL Sodium Level 141 MEQ/L Potassium Level 3.7 MEQ/L Chloride Level 110 MEQ/L Carbon Dioxide Level 24.2 MEQ/L Anion Gap 7 MEQ/L Estimat Glomerular Filtration Rate 96 ML/MIN Lipase 104 U/L Clue Cells (Wet Prep) NONE SEEN Vaginal Trichomonas (Wet Prep) NONE SEEN Vaginal Yeast (Wet Prep) NONE SEEN Chlamydia trachomatis DNA (PCR) NOT DETECTED Neisseria gonorrhoeae DNA (PCR) NOT DETECTED [facility] Medical Record Reviewed: Yes Supervised Visit with BERNA: Yes Interpretation(s) CBC & BMP Diagram 09/28/17 23:30 Total Protein 7.2, Albumin 3.8, Calcium Level 8.7, Alkaline Phosphatase 64, Aspartate Amino Transf (AST/SGOT) 42 H, Alanine Aminotransferase (ALT/SGPT) 131 H, Total Bilirubin 0.3 Last 24 hours Impressions Abdomen/Pelvis CT 09/28/17 [id number] Signed Impressions: Service Date/Time: Friday, September 29, 2017 01:19 - CONCLUSION: 1. Mild prominence of the endometrial stripe likely related to phase of menses. Small, 1.2 cm probable left ovarian cyst. 2. Otherwise negative. No acute intraperitoneal or pelvic process to explain current clinical symptoms. The appendix is identified and is radiographically normal. Driss Pimentel MD Differential Diagnosis . Narrative Course The patient laboratory tests have been reviewed. Her CAT scan shows ovarian cysts. No acute intra-abdominal process. No appendicitis. This is pelvic pain, dysfunctional uterine bleeding. Diagnosis Primary Impression: Pelvic pain Additional Impression: Dysfunctional uterine bleeding Patient Instructions: General Instructions Departure Forms: Tests/Procedures Additional Instruction: Rest. Increase fluids. Diclofenac. Follow-up with [facility] in the next 1-2 days for recheck. Return to the ER for emergencies. Med/Other Pt SpecificInfo: Prescription(s) given Scripts Diclofenac Sodium (Diclofenac Sodium DR) 75 Mg Tabdr 75 MG PO BID, #20 TAB 0 Refills Prov: Aleksander Nichols MD 09/29/17 Disposition: 01 DISCHARGE HOME Condition: Stable Mikel Ro September 29, 2017 03:38
== END 2017-09-29 03:48 | disposition home or self-care (01) ==
LOC: NEPD 21:11
DX: R10.2 Pelvic and perineal pain (principal); N93.8 Other specified abnormal uterine and vaginal bleeding; B19.20 Unspecified viral hepatitis C without hepatic coma
CPT/HCPCS: 74177; 80053; 81001; 83690; 84703; 85025; 87210; 87491; 87591; 96374; 96375; 99285; J1885; J2270; Q9963; Q9967